=== PATIENT | female | born 1965 | race Caucasian/White ===

== ENCOUNTER 2016-04-30 18:29 | Emergency (ER) | payer BC ==
[2016-04-30 18:46] VITALS: BP 136/81
[2016-04-30] MEDS ORDERED: Ibuprofen TAB* 600 MG PO ONE (19:40)
--- NOTE | 2016-04-30 20:11 | UC ---
FLU HPI - HPI Summary HPI Summary: 50 year old female with complaints of fever, headache, body aches, cough, sore throat x 2 days. [place] mild nausea today. Temp 102 upon arrival - History of Current Complaint Chief Complaint: UCRespiratory Stated Complaint: COUGH Time Seen by Provider: 04/30/16 19:27 Hx Obtained From: Patient Hx Last Menstrual Period: 09/2014 ?: No Onset/Duration: Sudden Onset, Lasting Days - 2, Still Present Severity Currently: Moderate Severity Initially: Moderate Associated Signs & Symptoms: Positive: Fever - 102, T Max - 102, Myalgia, Cough , Sore Throat, Nasal Congestion, Headache. Negative: Vomiting, Diarrhea Related Hx: Possible Flu/Infectious Exposure - Risk Factors Influenza Risk Factors: Negative - Allergy/Home Medications Allergies/Adverse Reactions: Allergies Allergy/AdvReac Type Severity Reaction Status Date / Time No Known Allergies Allergy Verified 04/30/16 18:46 Home Medications: Home Medications Dextromethorphan-Phenylephrine [Vicks Dayquil Cold & Flu 10-5-325 mg/15Ml] 1 liq PO Q8HR PRN 04/30/16 [History Confirmed 04/30/16] [id number] [Nyquil Severe Cold/Flu 5-6.25-10-325 mg/15Ml] 1 liq PO BEDTIME PRN 04/30/16 [History Confirmed 04/30/16] PMH/Surg Hx/FS Hx/Imm Hx Previously Healthy: Yes Endocrine History Of: Denies: Diabetes Cardiovascular History Of: Denies: Hypertension Respiratory History Of: Denies: Asthma - Surgical History Surgical History: Yes Surgery Procedure, Year, and Place: C-SECT - Family History Known Family History: Negative: Hypertension, Diabetes - Social History Occupation: Employed Full-time - nanny Lives: With Family Alcohol Use: Occasionally Substance Use Type: None Smoking Status (MU): Never Smoked Tobacco Review of Systems Constitutional: Fever, Chills, Fatigue Skin: Negative Eyes: Negative ENT: Sore Throat, Nasal Discharge Respiratory: Cough Cardiovascular: Negative Gastrointestinal: Negative Genitourinary: Negative Motor: Negative Neurovascular: Negative Musculoskeletal: Myalgia Neurological: Headache Psychological: Negative All Other Systems Reviewed And Are Negative: Yes Physical Exam Triage Information Reviewed: Yes Appearance: No Pain Distress, Well-Nourished, Ill-Appearing - mildly Vital Signs: Initial Vital Signs Temp 102 F 01/28/17 18:40 Pulse 92 04/30/16 18:40 Resp 18 04/30/16 18:40 BP 136/81 04/30/16 18:40 Pulse Ox 100 04/30/16 18:40 Vital Signs Reviewed: Yes Eyes: Positive: Conjunctiva Clear. Negative: Discharge ENT: Positive: Pharyngeal erythema, TMs normal, Tonsillar swelling. Negative: Nasal congestion, Nasal drainage, Tonsillar exudate Neck: Positive: Supple, Nontender, Enlarged Nodes @ - bilateral ac Respiratory: Positive: Lungs clear, Normal breath sounds Cardiovascular: Positive: RRR, No Murmur Abdomen Description: Positive: Nontender, No Organomegaly, Soft. Negative: CVA Tenderness (R), CVA Tenderness (L), Distended, Guarding Musculoskeletal: Positive: Strength Intact, ROM Intact Neurological: Positive: Alert, Muscle Tone Normal Psychological: Positive: Age Appropriate Behavior - pleasant and cooperative Skin: Negative: rashes, breakdown Flu Course/Dx - Course Course Of Treatment: Rapid Influenza. Rapid Strep - negative. Ibuprofen for fever - Differential Dx/Diagnosis Differential Diagnosis/HQI/PQRI: Influenza, Upper Respiratory Infection, Other - pharyngitis Provider Diagnoses: flu like illness Discharge - Discharge Plan Condition: Stable Disposition: HOME Patient Education Materials: Influenza (ED) Forms: *Work Release Referrals: Treasure Ramos [Primary Care Provider] - Additional Instructions: Take Tylenol 650mg - 1000 mg every 6 - 8 hours as needed for pain or fever Take Ibuprofen 600mg every 6 hour as needed for pain or fever Robitussin may help with your cough
== END 2016-04-30 20:55 | disposition home or self-care (01) ==
LOC: UCCORT 18:29
DX: J11.1 Influenza due to unidentified influenza virus with other respiratory manifestations (principal)
CPT/HCPCS: 87502; 87651; 99212; A9270-GY; G0463

== ENCOUNTER 2016-05-11 07:02 | Emergency (ER) | payer BC ==
[2016-05-11 07:13] VITALS: BP 119/75
[2016-05-11] MEDS ORDERED: Ondansetron ODT TAB* 4 MG PO ONE (07:23)
--- NOTE | 2016-05-11 07:44 | UC ---
Abdominal Pain Female HPI - HPI Summary HPI Summary: vomiting since 11pm last night, every half hour. Cramping pain in epigastric area. No fever, no diarrhea. She blames some salad she ate yesterday. She is on an antibiotic which she can't recall the name of, "blue pill twice a day", that her [facility]OTYPE MACHINIST prescribed for an asymptomatic vaginal infection. (?doxycycline?) When I suggested that the vomiting and stomach upset could be from the antibiotic, she is very resistant to this idea. Recently recovered from flu symptoms, which did not involve vomiting/diarrhea - History of Current Complaint Chief Complaint: UCGI Stated Complaint: VOMITTING Time Seen by Provider: 05/11/16 07:10 Hx Obtained From: Patient Hx Last Menstrual Period: 2014 Onset/Duration: Sudden Onset, Lasting Hours - 9 Timing: Constant Severity Initially: Moderate Severity Currently: Moderate Location: Epigastric Radiates: No Character: Cramping, Sharp Aggravating Factor(s): Food Alleviating Factor(s): Nothing Associated Signs and Symptoms: Positive: Decreased Appetite, Nausea, Vomiting. Negative: Diaphoresis, Fever, Cough, Chest Pain, Dizzy, Back Pain, Constipation , Blood in Stool, Urinary Symptoms, Vaginal Bleeding, Vaginal Discharge - never had a discharge; infection was discovered on routine exam, Diarrhea - Risk Factors Ectopic Risk Factor: Negative Ovarian Torsion Risk Factor: Negative Allergies/Adverse Reactions: Allergies Allergy/AdvReac Type Severity Reaction Status Date / Time No Known Allergies Allergy Verified 05/11/16 07:13 Home Medications: Home Medications Antibiotic For Gu Infection 1 tab PO BID 05/11/16 [History Confirmed 05/11/16] PMH/Surg Hx/FS Hx/Imm Hx Previously Healthy: Yes Endocrine History Of: Denies: Diabetes Cardiovascular History Of: Denies: Hypertension Respiratory History Of: Denies: Asthma - Surgical History Surgical History: Yes Surgery Procedure, Year, and Place: C-SECT - Family History Known Family History: Negative: Hypertension, Diabetes - Social History Occupation: Employed Full-time Lives: With Family Alcohol Use: Occasionally Substance Use Type: None Smoking Status (MU): Never Smoked Tobacco Review of Systems Constitutional: Negative Skin: Negative Eyes: Negative ENT: Negative Respiratory: Negative Cardiovascular: Negative Gastrointestinal: Abdominal Pain, Vomiting Genitourinary: Negative Motor: Negative Neurovascular: Negative Musculoskeletal: Negative Neurological: Negative Psychological: Negative All Other Systems Reviewed And Are Negative: Yes Physical Exam Triage Information Reviewed: Yes Appearance: Well-Appearing, Well-Nourished, Pain Distress - looks uncomfortable , holding epigastric area Vital Signs: Initial Vital Signs Temp 99.5 F 05/11/16 07:07 Pulse 83 05/11/16 07:07 Resp 18 05/11/16 07:07 BP 119/75 05/11/16 07:07 Vital Signs Reviewed: Yes Eye Exam: Normal Eyes: Positive: Conjunctiva Clear ENT: Positive: Pharynx normal, TMs normal. Negative: Tonsillar swelling, Tonsillar exudate, Trismus, Muffled/hoarse voice Neck exam: Normal Neck: Positive: Supple Respiratory Exam: Normal Cardiovascular Exam: Normal Abdomen Description: Positive: No Organomegaly, Soft, Other: - mild epigastric tenderness. Negative: CVA Tenderness (R), CVA Tenderness (L), Distended, Guarding, Hernia @, Hepatomegaly, McBurney's Point Tenderness, Peritoneal Signs , Pulsatile Mass Musculoskeletal Exam: Normal Neurological Exam: Normal Psychological Exam: Normal Skin Exam: Normal Abd Pain Female Course/Dx - Differential Dx/Diagnosis Provider Diagnoses: gastritis Discharge - Discharge Plan Condition: Stable Disposition: HOME Prescriptions: Ondansetron ODT TAB* [Zofran Odt TAB*] 4 mg PO Q8H PRN #6 tab.odt PRN Reason: Nausea Patient Education Materials: Acute Nausea and Vomiting (ED) Referrals: Treasure Ramos [Primary Care Provider] - Additional Instructions: Your vomiting could be from food poisoning, but it is possible that it is from irritation to your stomach from your antibiotic. Don't take it until your stomach has recovered. Call your [facility]YPE [facility]ACH[facility] doctor today to see if you need to finish the antibiotic. Perhaps you have taken enough already to treat the infection.
== END 2016-05-11 08:14 | disposition home or self-care (01) ==
LOC: UCCORT 07:02
DX: K29.70 Gastritis, unspecified, without bleeding (principal)
CPT/HCPCS: 99212; A9270-GY; G0463

== ENCOUNTER 2018-05-15 16:47 | Emergency (ER) | payer BC ==
[2018-05-15 17:08] VITALS: BP 129/83
--- NOTE | 2018-05-15 17:33 | UC ---
UC General HPI - HPI Summary HPI Summary: TODAY, PT NOTICED 2 SPOTS ON HER R HAND. "THEY LOOK LIKE TINY BLISTERS" THEY ARE MOSTLY NOT BOTHERSOME BUT SOMETIMES MIGHT ITCH A LITTLE. - History of Current Complaint Chief Complaint: Alexia Stated Complaint: RIGHT HAND CONCERN Time Seen by Provider: 05/15/18 17:21 Hx Obtained From: Patient Hx Last Menstrual Period: n/a Timing: Constant Pain Intensity: 0 Associated Signs & Symptoms: Negative: Edema, Fever - Allergy/Home Medications Allergies/Adverse Reactions: Allergies Allergy/AdvReac Type Severity Reaction Status Date / Time No Known Allergies Allergy Verified 05/15/18 17:01 Home Medications: Home Medications NK [No Home Medications Reported] 05/15/18 [History Confirmed 05/15/18] PMH/Surg Hx/FS Hx/Imm Hx Previously Healthy: Yes - Surgical History Surgical History: Yes Surgery Procedure, Year, and Place: C-SECT - Family History Known Family History: Negative: Hypertension, Diabetes - Social History Alcohol Use: Occasionally Substance Use Type: None Smoking Status (MU): Never Smoked Tobacco - Immunization History Most Recent Tetanus Shot: Mar 2018 Vaccination Up to Date: Yes Review of Systems All Other Systems Reviewed And Are Negative: Yes Constitutional: Positive: Negative Skin: Positive: Rash Eyes: Positive: Negative ENT: Positive: Negative Respiratory: Positive: Negative Cardiovascular: Positive: Negative Gastrointestinal: Positive: Negative Genitourinary: Positive: Negative Motor: Positive: Negative Neurovascular: Positive: Negative Musculoskeletal: Positive: Negative Neurological: Positive: Negative Psychological: Positive: Negative Physical Exam Triage Information Reviewed: Yes Appearance: Well-Appearing Vital Signs: Initial Vital Signs Temp 98.7 F 05/15/18 17:02 Pulse 64 05/15/18 17:02 Resp 20 05/15/18 17:02 BP 129/83 05/15/18 17:02 Pulse Ox 100 05/15/18 17:02 Vital Signs Reviewed: Yes Eyes: Positive: Conjunctiva Clear ENT: Positive: Normal ENT inspection Neck: Positive: Supple Respiratory: Positive: Lungs clear Cardiovascular: Positive: RRR Abdomen Description: Positive: Nontender Bowel Sounds: Positive: Present Musculoskeletal: Positive: ROM Intact Neurological: Positive: Alert Psychological: Positive: Age Appropriate Behavior Skin Exam: Normal, Other - 2 TINY FLUID FILLED BUMPS r DORSAL 5TH FINGER AND ADJACENT HAND, NO BURROWS, ERYTHEMA OR SCALE. Course/Dx - Differential Dx - Multi-Symptom Differential Diagnoses: Other - NO CONCERN FOR INFESTATION, FUNGAL OR BACTERIAL INFECTIONS. LOOKS MOST C/W DYSHYDROTIC ECZEMA. PT JUST HAPPENED TO NOTICE IT TODAY. IF IT DOESN'T IMPROVE OR WORSENS OVER THE NEXT FEW DAYS, PT TO F/U DERMATOLOGY. - Diagnoses Provider Diagnosis: Dyshidrotic eczema Discharge - Sign-Out/Discharge Documenting (check all that apply): Patient Departure All imaging exams completed and their final reports reviewed: No Studies - Discharge Plan Condition: Stable Disposition: HOME Patient Education Materials: Acute Rash (ED) Referrals: Eveline Delgado [Medical Doctor] - Additional Instructions: FOLLOW UP DERMATOLOGY IF NOT BETTER IN 3 DAYS OR SOONER IF WORSE. - Billing Disposition and Condition Condition: STABLE Disposition: Home
== END 2018-05-15 17:45 | disposition home or self-care (01) ==
LOC: UCCORT 16:47
DX: L30.1 Dyshidrosis [pompholyx] (principal)
CPT/HCPCS: 99211; G0463